=== PATIENT | female | born 1975 | race Caucasian/White ===

== ENCOUNTER 2018-06-22 06:40 | Emergency (ER) | payer OTHER ==
[~2018-06-22] VITALS: Ht 172.7 cm; Wt 103.4 kg
[~2018-06-22 06:40] MED LIST: ANTIVERT25 M1 PO; DECADRON P4 MG/ML-1M IH; DICY20TA PO; INDERAL LA80 MG PO; LIPOFLAVOVIT CA1 TAB PO; PEPCID20 MG PO; TORADOL60 MG IM; VOLTAREM 50 MG PO; ZANTAC300 MG PO
== END 2018-06-22 16:08 | disposition home or self-care (01) ==
LOC: ER 06:40
DX: N93.8 Other specified abnormal uterine and vaginal bleeding (principal)

== ENCOUNTER 2018-06-25 08:20 | Outpatient (CLI) | payer OTHER | END 2018-06-25 08:33 | disposition home or self-care (01) | LOC: RAD 08:20 | DX: I10 Essential (primary) hypertension (principal); Z01.810 Encounter for preprocedural cardiovascular examination; M54.5 Low back pain; Z13.820 Encounter for screening for osteoporosis; Z12.31 Encounter for screening mammogram for malignant neoplasm of breast; Z12.11 Encounter for screening for malignant neoplasm of colon ==

== ENCOUNTER 2018-06-26 09:09 | Inpatient (IN) | payer OTHER ==
[~2018-06-26] VITALS: Ht 172.7 cm; Wt 103.9 kg
[2018-07-04] MEDS ORDERED: NAPR500T14 PO (07:14)
== END 2018-07-04 08:30 | DRG 743 ==
LOC: SURH 07-01 07:00 → O/R 07-01 08:46 → SURH 07-01 09:09 → OB/GYN 07-01 14:28
PROVIDERS: Obstetrics & Gynecology
PROC: 0UT70ZZ Resection of Bilateral Fallopian Tubes, Open Approach (ICD-10-PCS; 2018-07-01)
PROC: 0UT90ZZ Resection of Uterus, Open Approach (ICD-10-PCS; principal; 2018-07-01 07:00)
DX: D25.1 Intramural leiomyoma of uterus (principal); N80.0 Endometriosis of uterus; N84.0 Polyp of corpus uteri; N92.1 Excessive and frequent menstruation with irregular cycle